=== PATIENT | female | born 1970 | race Caucasian/White ===

== ENCOUNTER 2016-08-29 09:33 | Emergency (ER) | payer MEDICAID ==
[~2016-08-29] VITALS: Ht 152.4 cm; Wt 94.8 kg
[2016-08-29 09:43] VITALS: BP 236/152
--- NOTE | 2016-08-29 09:47 | NUR ---
EKG completed by EMT in triage room.
[2016-08-29] MEDS ORDERED: ASPIRIN 81 MG TAB.CHEW PO ONE (09:50)
--- NOTE | 2016-08-29 09:51 | NUR ---
Patient transferred to bed 3 via wheelchair by tech. RN evaluating patient at bedside.
[2016-08-29 10:12] LABS: BASOPHILS # (AUTO) 0.1 K/uL (0.00-0.22); BASOPHILS % (AUTO) 0.9 % (0.0-2.0); EOSINOPHILS # (AUTO) 0.2 K/uL (0-0.4); EOSINOPHILS % (AUTO) 1.8 % (0.0-4.0); HEMATOCRIT 44.3 % (36-48); HEMOGLOBIN 14.6 g/dL (12.0-16.0); LYMPHOCYTES # (AUTO) 2.2 K/uL (2.5-16.5); LYMPHOCYTES % (AUTO) 26.6 % (20.5-51.1); MEAN CORPUSCULAR HEMOGLOBIN 29 pg (27-31); MEAN CORPUSCULAR HGB CONC 33 g/dL (33-37); MEAN CORPUSCULAR VOLUME 90 fL (80-94); MONOCYTES # (AUTO) 0.4 K/uL (0.8-1.0); MONOCYTES % (AUTO) 4.5 % (1.7-9.3); NEUTROPHILS # (AUTO) 5.5 K/uL (1.8-7.7); NEUTROPHILS % (AUTO) 66.2 % (42.2-75.2); PLATELET COUNT (AUTO) 268 K/uL (140-450); RED BLOOD CELL COUNT(AUTO) 4.95 MIL/uL (4.20-5.40); RED CELL DISTRIBUTION WIDTH 11.8 % (11.6-13.7); WHITE BLOOD COUNT (AUTO) 8.4 K/uL (4.8-10.8)
--- NOTE | 2016-08-29 10:12 | NUR ---
PATIENT PRESENTS TO ED C/O CHESTP PAIN X 1 WEEK . PT STATES IT IS A PRESSURE, SHE STATES SHE ALWAYS HAS SOB BECAUSE OF HER ASTHMA AND HER CURRENT SOB IS HE BASELINE . DENIES N/V/D; SKIN IS PINK/WARM/DRY; AAOX4 WITH EVEN AND STEADY GAIT; LUNGS CLEAR BL; HR EVEN AND REGULAR; PT DENIES ANY FEVER, OR COUGH AT THIS TIME; PATIENT STATES PAIN OF 6/10 AT THIS TIME; VSS; PATIENT POSITIONED FOR COMFORT; HOB ELEVATED; BEDRAILS UP X2; BED DOWN. ER MD MADE AWARE OF PT STATUS.
--- NOTE | 2016-08-29 10:20 | NUR ---
NOTIFIED DR. EMERSON OF PATIENTS HTN, HEADACHE, AND CHEST PAIN, REQUESTED CONSIDERATION OF MEDICATIONS TO REDUCE BP, DR. EMERSON PROVIDED ORDERS FOR BENADRYL, REGLAN, AND NS IVF.
[2016-08-29] MEDS ORDERED: NACL 0.9% 1,000 ML IV ONE (10:21)
[2016-08-29 10:24] LABS: CALCIUM 8.6 mg/dL (8.5-10.1); CARBON DIOXIDE 32.3 mmol/L (21-32); CREATININE 0.7 mg/dL (0.6-1.3); POTASSIUM 3.3 mmol/L (3.5-5.1)
[2016-08-29] MEDS ORDERED: METOCLOPRAMIDE 10 MG/2 ML INJ VIAL IVP ONE (10:25)
[2016-08-29] MEDS ORDERED: diphenhydrAMINE 50 MG/ML VIAL IVP ONE (10:25)
[2016-08-29 10:27] LABS: INR 1.1 (0.8-1.2); PARTIAL THROMBOPLASTIN TIME 29.9 secs (22-35.6); PROTHROMBIN TIME 10.4 secs (10.8-13.4)
[2016-08-29 10:29] LABS: ALBUMIN 3.9 g/dL (3.4-5.0); TOTAL BILIRUBIN 0.4 mg/dL (0.0-1.0); TOTAL PROTEIN, SERUM 7.7 g/dL (6.4-8.2)
--- NOTE | 2016-08-29 11:14 | NUR ---
DR. EMERSON NOTIFIED BY AUTO ROLLER MONICA THAT PATIENTS BP IS STILL ELEVATED AT 200/132.
[2016-08-29] MEDS ORDERED: ENALAPRILAT 2.5 MG/2 ML VIAL IVP ONE (11:15)
--- NOTE | 2016-08-29 11:22 | NUR ---
DR. EMERSON AT BEDSIDE
--- NOTE | 2016-08-29 11:56 | NUR ---
DR EMERSON NOTIFIED PATIENT BP STILL ELEVATED, ALSO NOTIFIED PATIENT IS HAVING ARYTHMIAS ON THE MONITOR, DID A TREND REVIEW SHOWING HIM WHAT I SAW, INCLUDING MULTIPLE PAC, MULTIFOCAL. ALSO SHOWED HIM A FEW P WAVES WITH MISSING QRS COMPLEX. REPEAT 12 LEAD EKG ORDERED AND BEING PERFORMED BY ALYCE WESTBROOK
--- NOTE | 2016-08-29 12:23 | NUR ---
EKG SHOWS NSR, GIVEN TO DR EMERSON OK TO DC
--- NOTE | 2016-08-29 12:50 | NUR ---
Patient discharged with v/s stable. Written and verbal after care instructions given and explained. Patient alert, oriented and verbalized understanding of instructions. Ambulatory with steady gait. All questions addressed prior to discharge. ID band removed. Patient advised to follow up with PMD. Rx of ATENOLOL, AMLODIPINE, LABETALOL, LISINOPRIL given. Patient educated on indication of medication including possible reaction and side effects. Opportunity to ask questions provided and answered.
[2016-08-29 12:52] VITALS: BP 166/121
== END 2016-08-29 12:50 | disposition home or self-care (01) ==
LOC: MED 09:33
DX: R07.89 Other chest pain (principal); R51 Headache; I10 Essential (primary) hypertension; J45.909 Unspecified asthma, uncomplicated; F41.9 Anxiety disorder, unspecified; Z91.040 Latex allergy status
CPT/HCPCS: 36415; 71010; 80053; 81002; 82948; 83880; 84484; 85025; 85610; 85730; 93005; 96361; 96374; 96375; 99285; J1200; J2765; J3490; J7030; Q0092

== ENCOUNTER 2017-05-03 09:33 | Emergency (ER) | payer MEDICAID ==
[~2017-05-03] VITALS: Ht 182.9 cm; Wt 93.4 kg
[2017-05-03 09:41] VITALS: BP 207/116
--- NOTE | 2017-05-03 09:50 | NUR ---
Patient to bed 02.
--- NOTE | 2017-05-03 09:56 | NUR ---
Dr. Cordova evaluating patient at bedside.
[2017-05-03] MEDS ORDERED: predniSONE 20 MG TAB PO ONE (10:00)
[2017-05-03] MEDS ORDERED: diphenhydrAMINE 50 MG CAP PO ONE (10:00)
--- NOTE | 2017-05-03 10:00 | NUR ---
46/f BB FAMILY HERE FOR WASP STING LEFT KNUCKLE YESTERDAY. STS TOOK EPI PEN YESTERDAY WITH RELIEF BUT TODAY C/O SOB. PT AAOX4. AIRWAY PATENT AND INTACT. RESP EVEN AND UNLABORED. PULSE OX 100%. BP ELEVATED. PT STS TOOK HER 4 BP PILLS AT 6AM AND STS SBP 190 IS HER NL BP, DR. EMERSON MADE AWARE. MEDS GIVEN PER AUG. HX: HTN, BIPOLAR, ASTHMA, ANEMIA HEART MURMUR. RX: LISINOPRIL, ATENOLOL,EPI PEN, NITRO
--- NOTE | 2017-05-03 10:30 | NUR ---
DENIES SOB. VSS. DILLON MINA AWARE.
--- NOTE | 2017-05-03 10:50 | NUR ---
PT FILLING OUT ORANGE SURVEY AT THIS TIME.
--- NOTE | 2017-05-03 10:57 | NUR ---
Patient discharged with v/s stable. Written and verbal after care instructions given and explained. Patient alert, oriented and verbalized understanding of instructions. Ambulatory with steady gait. All questions addressed prior to discharge. ID band removed. Patient advised to follow up with PMD. Rx of PREDNISONE, BENADRYL, EPI PEN given. Patient educated on indication of medication including possible reaction and side effects. Opportunity to ask questions provided and answered.
[2017-05-03 10:58] VITALS: BP 175/112
== END 2017-05-03 10:57 | disposition home or self-care (01) ==
LOC: MED 09:33
DX: T63.461A Toxic effect of venom of wasps, accidental (unintentional), initial encounter (principal); J45.909 Unspecified asthma, uncomplicated; I10 Essential (primary) hypertension; Z90.710 Acquired absence of both cervix and uterus; Z91.040 Latex allergy status; Y92.89 Other specified places as the place of occurrence of the external cause
CPT/HCPCS: 96372; 99283; J0171; J7512; Q0163

== ENCOUNTER 2017-10-01 11:09 | Emergency (ER) | payer MEDICAID, OTHER ==
[~2017-10-01] VITALS: Ht 154.9 cm; Wt 95.9 kg
[2017-10-01 11:16] VITALS: BP 155/110
--- NOTE | 2017-10-01 11:22 | NUR ---
PT AMBUALTED TO BED 2
--- NOTE | 2017-10-01 11:25 | NUR ---
PT. CAME IN TO ER W/ C/O SOB AND PRESSURE ON HER CHEST SINCE 0800 TODAY . PT. STATES " I DROPPED OFF MY KIDS AT SCHOOL AND STARTED FEELING OUT OF BREATHE AND ALSO THIS PRESSURE ON MY CHEST THAT STAYS THERE ". PT. AAOX4, RR EVEN AND UNLABORED, SKIN WARM AND DRY TO TOUCH. 8/10 PAIN IN HER CHEST AND DESCRIBES PRESSURE THAT IS NON RADIATING, PT. HAS STAEADY GAIT, LS: CLEAR. ELEVATED B/P READING NOTED . DR. MCKAY NOTIFIED. WILL CONTINUE TO MONITOR.
--- NOTE | 2017-10-01 11:31 | NUR ---
EKG AT BEDSIDE.
--- NOTE | 2017-10-01 11:32 | NUR ---
Cesario galloway in [facility] - 10/01/17 at 1256 by MED1 Patient being evaluated by DR Nichols bedside.
--- NOTE | 2017-10-01 11:32 | NUR ---
Patient being evaluated by DR Nichols bedside.
[2017-10-01] MEDS ORDERED: hydrALAZINE 20 MG/ML VIAL IM ONE (11:40)
[2017-10-01 12:00] LABS: BASOPHILS # (AUTO) 0.1 K/uL (0.00-0.22); BASOPHILS % (AUTO) 0.7 % (0.0-2.0); EOSINOPHILS # (AUTO) 0.1 K/uL (0-0.4); EOSINOPHILS % (AUTO) 1.3 % (0.0-4.0); HEMATOCRIT 43.3 % (36-48); HEMOGLOBIN 14.5 g/dL (12.0-16.0); LYMPHOCYTES # (AUTO) 2.1 K/uL (2.5-16.5); LYMPHOCYTES % (AUTO) 25.3 % (20.5-51.1); MEAN CORPUSCULAR HEMOGLOBIN 30 pg (27-31); MEAN CORPUSCULAR HGB CONC 33 g/dL (33-37); MEAN CORPUSCULAR VOLUME 88.9 fL (80-94); MONOCYTES # (AUTO) 0.4 K/uL (0.8-1.0); MONOCYTES % (AUTO) 5.2 % (1.7-9.3); NEUTROPHILS # (AUTO) 5.6 K/uL (1.8-7.7); NEUTROPHILS % (AUTO) 67.5 % (42.2-75.2); PLATELET COUNT (AUTO) 285 K/uL (140-450); RED BLOOD CELL COUNT(AUTO) 4.87 MIL/uL (4.20-5.40); RED CELL DISTRIBUTION WIDTH 13.2 % (11.6-13.7); WHITE BLOOD COUNT (AUTO) 8.3 K/uL (4.8-10.8)
[2017-10-01 12:10] LABS: APPEARANCE,URINE CLEAR (CLEAR); BILIRUBIN,URINE NEGATIVE (NEGATIVE); BLOOD, URINE NEGATIVE (NEGATIVE); COLOR,URINE YELLOW (YELLOW); LEUKOCYTE ESTERASE ,URINE NEGATIVE (NEGATIVE); NITRITE, URINE NEGATIVE (NEGATIVE); UGLUCOSE NEGATIVE (NEGATIVE)
[2017-10-01 12:11] LABS: ANION GAP 10.7 (8-16); CARBON DIOXIDE 30.8 mmol/L (21-32); CREATININE 0.8 mg/dL (0.6-1.3); POTASSIUM 3.5 mmol/L (3.5-5.1)
--- NOTE | 2017-10-01 12:51 | NUR ---
Patient being reevaluated by Nallely MCKAY at bedside.
[2017-10-01] MEDS ORDERED: IBUPROFEN 800 MG TAB PO ONE (12:55)
[2017-10-01 13:03] LABS: TOTAL BILIRUBIN 0.4 mg/dL (0.0-1.0)
[2017-10-01 13:04] LABS: ALBUMIN 3.8 g/dL (3.4-5.0)
--- NOTE | 2017-10-01 13:10 | NUR ---
PT. IN BED RESTING IN BED COMFORTABLY , RR EVEN AND UNLABORED, GAVE PT. JUICE PER PT. REQUEST. AAOX4, NO C/O PAIN AT THIS TIME. FAMILY MEMBER AT BEDSIDE. WILL CONTINUE TO MONITOR.
--- NOTE | 2017-10-01 13:14 | NUR ---
Patient being reevaluated by Nallely MCKAY at bedside.
--- NOTE | 2017-10-01 13:14 | NUR ---
Cesario galloway in [facility] - 10/01/17 at 1314 by MED1 Patient being reevaluated by Nallely MCKAY at bedside.
--- NOTE | 2017-10-01 13:15 | NUR ---
Patient being reevaluated by DR MCKAY at bedside.
[2017-10-01 13:25] VITALS: BP 117/75
--- NOTE | 2017-10-01 13:25 | NUR ---
Patient discharged with v/s stable. Written and verbal after care instructions given and explained. Patient verbalized understanding. Ambulatory with steady gait. All questions addressed prior to discharge. Advised to follow up with PMD IN 2-3 DAYS .
== END 2017-10-01 13:25 | disposition home or self-care (01) ==
LOC: MED 11:09
DX: F41.9 Anxiety disorder, unspecified (principal); R06.02 Shortness of breath; R51 Headache; I10 Essential (primary) hypertension; J45.909 Unspecified asthma, uncomplicated; F31.9 Bipolar disorder, unspecified; Z91.040 Latex allergy status
CPT/HCPCS: 36415; 71045; 80053; 81003; 83880; 84484; 85025; 96372; 99285; J0360; Q0092